=== PATIENT | male | born 1980 | race Caucasian/White ===

== ENCOUNTER 2022-03-09 22:26 | Emergency (ER) | payer BC ==
[2022-03-09] MEDS: LIDOCAINE PATCH 5% TOP STA (22:56)
[2022-03-09] MEDS: TETANUS/DIPHTHERIA/PERTUSSIS 0.5 ML SYRINGE IM ONE (22:56)
[2022-03-09] MEDS: IBUPROFEN 800 MG TABLET PO STA (23:38)
--- NOTE | 2022-03-09 23:54 | ED Physician Documentation ---
PD HPI HEAD INJURY - Stated complaint Stated Complaint: HEAD INJ/BACK INURY - Chief complaint Chief Complaint: Laceration - History obtained from History obtained from: Patient - Additional information Additional information: Patient is a 42-year-old Presenting for evaluation [place] roller [place] He was on skates when he fell backwards striking his head. He sustained a laceration to the back of his head. There was no LOC. He also reports pain to his low back. He was able to get up and skated off the rink as well as drove himself home and then to the emergency department. He does not take a blood thinner.He denies severe headache, visual changes, chest pain, abdominal pain, extremity pain.He is unsure of his last tetanus. Review of Systems Constitutional: denies: Fever Throat: denies: Sore throat Cardiac: denies: Chest pain / pressure Respiratory: denies: Dyspnea GI: denies: Abdominal Pain : denies: Dysuria Skin: reports: Laceration (s) Musculoskeletal: reports: Back pain Neurologic: reports: Head injury. denies: Syncope PD PAST MEDICAL HISTORY - Present Medications Home Medications: Ambulatory Orders Medication Instructions Recorded Confirmed No Known Home Medications 03/09/22 03/09/22 - Allergies Allergies/Adverse Reactions: Allergies Allergy/AdvReac Type Severity Reaction Status Date / Time No Known Drug Allergies Allergy Verified 03/09/22 22:31 PD ED PE NORMAL - General General: Alert and oriented X 3, No acute distress, Well developed/nourished - HEENT HEENT: PERRL, EOMI, Ears normal (No hemotympanum Or Fluid leak), Other (No rodgers signs or raccoon eyes). No: Atraumatic (2 cm occipital scalp laceration) - Neck Neck: Supple, no meningeal sign, No bony TTP, C-Spine cleared by NEXUS criteria - Cardiac Cardiac: RRR, No murmur, Strong equal pulses - Respiratory Respiratory: No respiratory distress, Clear bilaterally - Abdomen Abdomen: Normal bowel sounds, Soft, Non tender, Non distended - Back Back: Other (Mid low lumbar tenderness to palpation). No: No spinal TTP - Derm Derm: Warm and dry - Extremities Extremities: No tenderness to palpate - Neuro Neuro: Alert and oriented X 3, insole rounder 2-12 intact, No motor deficit, No sensory deficit, Normal speech, Other (Steady unassisted gait) Eye Opening: Spontaneous Motor: Obeys Commands Verbal: Oriented GCS Score: 15 Results - Vitals Vitals: Vital Signs - 24 hr 03/09/22 03/10/22 22:31 00:15 Temperature 36.8 C Heart Rate 88 76 Respiratory 16 14 Rate Blood Pressure 145/96 H 130/100 H O2 Saturation 98 100 Oxygen O2 Source Room air Procedures - Laceration (location) Occipital scalp Length in cm: 2 Wound type: Linear, Clean Anesthesia: Lidocaine 1% with epi Wound preparation: Hibiclens, Irrigated copiously NS Skin layer closure: Carlos Eduardo (3) Other: Patient tolerated well, No complications, Dressing applied, Tetanus booster given PD MEDICAL DECISION MAKING - ED course Complexity details: reviewed results, re-evaluated patient, d/w patient ED course: Patient presenting for evaluation after [place] [employer]. He did sustain a head injury with a scalp laceration. His neuro exam is normal and he did not have LOC. Per MIPS recommendations, head CT not warranted. C-spine cleared clinically. Scalp laceration closed with carlos eduardo. Patient also had low back pain. X-rays negative for fracture dislocation. He is able to ambulate easily. Patient counseled to continue with supportive care and advised on return precautions and need for staple removal. Departure - Departure Disposition: 01 Home, Self Care Clinical Impression: Head injury Qualifiers: Encounter type: initial encounter Qualified Code(s): S09.90XA - Unspecified injury of head, initial encounter Occipital scalp laceration Qualifiers: Encounter type: initial encounter Qualified Code(s): S01.01XA - Laceration without foreign body of scalp, initial encounter Contusion of lower back Qualifiers: Encounter type: initial encounter Qualified Code(s): S30.0XXA - Contusion of lower back and pelvis, initial encounter [place] [employer] Qualifiers: Encounter type: initial encounter Qualified Code(s): V00.121A - Fall from non-in-line roller-[employer], initial encounter Condition: Stable Instructions: ED Low Back Pain Injury, ED Head Injury Closed, ED Laceration Scalp Stitch Or Stap Comments: You have a laceration to the back of your head and 3 carlos eduardo were placed. These should be removed in 1 week on March 16. You can return to the emergency department or be evaluated in urgent care walk-in clinic for the carlos eduardo to be removed. Please keep the wound clean and dry. You can shower and wash your hair but I would not scrub near the area of the laceration. You also have an injury to your low back. An x-ray of your lumbar spine is negative for fracture. Please continue with lidocaine patches and anti-inflammatory medications as well as ice to aid with your pain. If you have any worsening symptoms such as confusion, weakness, worsening headache please return to the ER. Discharge Date/Time: 03/10/22 00:18
--- NOTE | 2022-03-10 00:07 | XRAY Report ---
PROCEDURE: Lumbar Spine 2 View INDICATIONS: fall/pain TECHNIQUE: 3 views of the lumbar spine were acquired. COMPARISON: None. FINDINGS: Bones: 5 [id number] vertebrae are present. There is normal bony alignment. No vertebral body compression fractures. No suspicious bony lesions. Soft tissues: Overlying bowel gas pattern is normal. No suspicious soft tissue calcifications. IMPRESSION: No fracture demonstrated. If high suspicion for occult fracture, consider CT for further evaluation. Reviewed by: Porfirio Izaguirre MD on 03/10/2022 12:06 AM PDT Approved by: Porfirio Izaguirre MD on 03/10/2022 12:06 AM PDT Station ID: [id number]
[2022-03-10] MEDS ORDERED: BACITRACIN ZINC OINT 1 PACKET TOP ONE (00:30)
[2022-03-10 00:32] VITALS: BP 130/100
== END 2022-03-10 00:18 | disposition home or self-care (01) ==
LOC: ED 22:26
DX: S01.01XA Laceration without foreign body of scalp, initial encounter (principal); S30.0XXA Contusion of lower back and pelvis, initial encounter; V00.121A Fall from non-in-line roller-skates, initial encounter; Y93.51 Activity, roller skating (inline) and skateboarding; Z23 Encounter for immunization; Z71.85 Encounter for immunization safety counseling
CPT/HCPCS: 12001; 72100; 90471; 90715; 99282; 99283; A9270

== ENCOUNTER 2022-11-18 18:39 | Outpatient (CLI) | payer BC ==
--- NOTE | 2022-11-20 19:48 | Ultrasound Report ---
PROCEDURE: Testicle INDICATIONS: SCROTAL MASS TECHNIQUE: Real-time scanning was performed of the scrotum and testicles, with image documentation. Color and p ulse Doppler interrogation was performed of both testicles. COMPARISON: None. FINDINGS: Right: Testicle is normal in size at 4.8 x 2.4 x 3 cm, and homogenous in echotexture. Epididymis is normal in overall size and morphology. Small para-epididymal cyst is seen on the right side measures 5 mm in size. Small hydrocele is seen. No varicoceles. Overlying scrotal skin is normal in thickness . Left: Testicle is normal in size at 4.6 x 2.5 x 2.9 cm, and homogeneous in echotexture. Epididymis is normal in overall size and morphology. Small hydrocele is seen. No varicoceles. Overlying scrotal skin is normal in thickness. Doppler: Color and pulse Doppler demonstrate normal and symmetric arterial flow in both testicles. Focused ultrasound examination of right inguinal region at patient's reported area of palpable lump s hows isoechoic solid appearing structure measures approximately 2.4 x 0.9 x 1.3 cm in size. This area is nonreducible. IMPRESSION: 1. Normal-appearing bilateral testes and epididymides. Small amount of bilateral hydroceles. No varic oceles. 2. Small cyst adjacent to the right epididymis as above. 3. Possible nonreducible right inguinal hernia versus lipoma is seen in right groin at patient's repo rted area of palpable lump. Clinical correlation is recommended. Reviewed by: Young Rodríguez MD on 11/20/2022 7:47 PM PDT Approved by: Young Rodríguez MD on 11/20/2022 7:47 PM PDT Station ID: [id number]
== END 2022-11-18 18:40 | disposition home or self-care (01) ==
LOC: DI 18:39
PROVIDERS: ATTEND Urology
DX: N43.3 Hydrocele, unspecified (principal); N50.3 Cyst of epididymis

== ENCOUNTER 2022-11-19 07:56 | Outpatient (CLI) | payer BC ==
[2022-11-19 12:08] LABS: BASOPHILS # (AUTO) 0.1 10^3/uL (0.0-0.1); BASOPHILS % (AUTO) 1.2 %; EOSINOPHILS # (AUTO) 0.2 10^3/uL (0.0-0.7); EOSINOPHILS % (AUTO) 3.3 %; HCT - HEMATOCRIT 47.2 % (42.0-52.0); HGB - HEMOGLOBIN 16.3 g/dL (14.0-18.0); LYMPHOCYTES % (AUTO) 34.2 %; MEAN CORPUSCULAR HEMOGLOBIN 30.9 pg (27.0-31.0); MEAN CORPUSCULAR HGB CONC 34.5 g/dL (32.0-36.0); MEAN CORPUSCULAR VOLUME 89.6 fL (80.0-94.0); MEAN PLATELET VOLUME 10.8 fL (7.4-11.4); MONOCYTES # (AUTO) 0.4 10^3/uL (0.0-1.0); NEUTROPHILS # (AUTO) 3.1 10^3/uL (1.5-6.6); PLT - PLATELET COUNT 213 10^3/uL (130-450); RED BLOOD COUNT 5.27 10^6/uL (4.70-6.10); RED CELL DISTRIBUTION WIDTH 12.4 % (12.0-15.0); WHITE BLOOD COUNT 5.7 x10^3/uL (4.8-10.8)
[2022-11-19 12:13] LABS: ALBUMIN 4.4 g/dL (3.2-5.5); ALBUMIN/GLOBULIN RATIO 1.6 (1.0-2.2); ALKALINE PHOSPHATASE 53 IU/L (42-121); ALT ALANINE AMINOTRANSFERASE 31 IU/L (10-60); AST ASPARTATE AMINOTRANSFERASE 23 IU/L (10-42); BILIRUBIN,TOTAL 1.1 mg/dL (0.2-1.0); BUN - BLOOD UREA NITROGEN 11 mg/dL (6-20); CALCIUM 9.2 mg/dL (8.5-10.3); CARBON DIOXIDE - CO2 29 mmol/L (21-32); CHLORIDE 105 mmol/L (101-111); CHOL/HDL RATIO 4.9 (<5.0); CHOLESTEROL 190 mg/dL; CREATININE 0.9 mg/dL (0.6-1.2); GFR - MDRD 93 (>89); GLUCOSE 109 mg/dL (70-100); HDL CHOLESTEROL 39 mg/dL; LDL CHOLESTEROL,CALCULATED 111 mg/dL; LDL/HDL RATIO 2.8 (<3.6); POTASSIUM 4.2 mmol/L (3.5-5.0); SODIUM 140 mmol/L (135-145); TOTAL PROTEIN 7.2 g/dL (6.7-8.2); TRIGLYCERIDES 198 mg/dL; VLDL CHOLESTEROL 40 mg/dL
[2022-11-19 12:23] LABS: ESTIMATED AVERAGE GLUCOSE 91 mg/dL (70-100); HEMOGLOBIN A1c% 4.8 % (4.27-6.07)
[2022-11-19 13:20] LABS: THYROID STIMULATING HORMONE 1.64 uIU/mL (0.34-5.60)
== END 2022-11-19 07:57 | disposition home or self-care (01) ==
LOC: LAB.N 07:56
PROVIDERS: ATTEND Nurse Practitioner Family
DX: Z00.00 Encounter for general adult medical examination without abnormal findings (principal); E78.5 Hyperlipidemia, unspecified; Z13.1 Encounter for screening for diabetes mellitus
CPT/HCPCS: 36415; 80053; 80061; 83036; 83721; 84443; 85025

== ENCOUNTER 2024-02-19 07:54 | Outpatient (CLI) | payer BC ==
[2024-02-19 12:18] LABS: BASOPHILS # (AUTO) 0.1 10^3/uL (0.0-0.1); BASOPHILS % (AUTO) 1.4 %; EOSINOPHILS # (AUTO) 0.2 10^3/uL (0.0-0.7); EOSINOPHILS % (AUTO) 3.1 %; HCT - HEMATOCRIT 44.5 % (42.0-52.0); HGB - HEMOGLOBIN 15.6 g/dL (14.0-18.0); LYMPHOCYTES # (AUTO) 2.1 10^3/uL (1.5-3.5); MEAN CORPUSCULAR HEMOGLOBIN 31.1 pg (27.0-31.0); MEAN CORPUSCULAR HGB CONC 35.1 g/dL (32.0-36.0); MEAN CORPUSCULAR VOLUME 88.6 fL (80.0-94.0); MEAN PLATELET VOLUME 10.6 fL (7.4-11.4); MONOCYTES # (AUTO) 0.4 10^3/uL (0.0-1.0); MONOCYTES % (AUTO) 6.3 %; NEUTROPHILS # (AUTO) 3.2 10^3/uL (1.5-6.6); PLT - PLATELET COUNT 202 10^3/uL (130-450); RED BLOOD COUNT 5.02 10^6/uL (4.70-6.10); RED CELL DISTRIBUTION WIDTH 12.2 % (12.0-15.0); WHITE BLOOD COUNT 5.9 x10^3/uL (4.8-10.8)
[2024-02-19 12:39] LABS: ALBUMIN 4.7 g/dL (3.2-5.5); ALKALINE PHOSPHATASE 56 IU/L (42-121); ALT ALANINE AMINOTRANSFERASE 26 IU/L (10-60); AST ASPARTATE AMINOTRANSFERASE 21 IU/L (10-42); BILIRUBIN,TOTAL 1.1 mg/dL (0.2-1.0); BUN - BLOOD UREA NITROGEN 13 mg/dL (6-20); CALCIUM 9.6 mg/dL (8.5-10.3); CARBON DIOXIDE - CO2 29 mmol/L (21-32); CHLORIDE 104 mmol/L (101-111); CHOL/HDL RATIO 3.5 (<5.0); CHOLESTEROL 174 mg/dL; GFR - MDRD 82 (>89); GLUCOSE 102 mg/dL (74-104); HDL CHOLESTEROL 50 mg/dL; LDL CHOLESTEROL,CALCULATED 86 mg/dL; LDL/HDL RATIO 1.7 (<3.6); POTASSIUM 4.1 mmol/L (3.5-4.5); SODIUM 138 mmol/L (135-145); TOTAL PROTEIN 7.1 g/dL (6.4-8.9); TRIGLYCERIDES 188 mg/dL; VLDL CHOLESTEROL 38 mg/dL
[2024-02-19 12:50] LABS: THYROID STIMULATING HORMONE 1.71 uIU/mL (0.34-5.60)
== END 2024-02-19 07:55 | disposition home or self-care (01) ==
LOC: LAB.N 07:54
PROVIDERS: ATTEND Nurse Practitioner Family
DX: E78.5 Hyperlipidemia, unspecified (principal); R53.83 Other fatigue; N52.9 Male erectile dysfunction, unspecified
CPT/HCPCS: 36415; 80053; 80061; 83721; 84403; 84443; 85025

== ENCOUNTER 2024-02-26 08:43 | Outpatient (CLI) | payer BC | END 2024-02-26 08:44 | disposition home or self-care (01) | LOC: LAB.N 08:43 | PROVIDERS: ATTEND Nurse Practitioner Family | DX: R53.83 Other fatigue (principal); N52.9 Male erectile dysfunction, unspecified | CPT/HCPCS: 36415; 84403 ==

== ENCOUNTER 2024-03-18 07:26 | Outpatient (CLI) | payer BC | END 2024-03-18 07:27 | disposition home or self-care (01) | LOC: LAB.N 07:26 | PROVIDERS: ATTEND Nurse Practitioner Family | DX: Z02.89 Encounter for other administrative examinations (principal); E29.1 Testicular hypofunction; Z79.890 Hormone replacement therapy | CPT/HCPCS: 36415; 84403 ==